=== PATIENT | female | born 1965 | race Caucasian/White ===

== ENCOUNTER 2019-02-24 16:38 | Emergency (ER) | payer SELFPAY ==
--- NOTE | 2019-02-24 17:12 | Cat Scan Report ---
CT head/brain wo con INDICATION / CLINICAL INFORMATION: 53 years Female; MAIN: CODE STROKE [id number]. TECHNIQUE: Routine CT head without contrast. All CT scans at this location are performed using CT dos e reduction for ALARA by means of automated exposure control. COMPARISON: None. FINDINGS: BRAIN / INTRACRANIAL CONTENTS: No acute hemorrhage, mass effect, midline shift, hydrocephalus, or acu te, large territorial infarct. No chronic infarct or atrophy appreciated. No significant white matter abnormality. CRANIOCERVICAL JUNCTION: No significant abnormality. ORBITS: No significant abnormality of visualized orbits. SINUSES / MASTOIDS: No significant abnormality the visualized paranasal sinuses or mastoid air cells. ADDITIONAL FINDINGS: None. IMPRESSION: 1. No focal mass, hemorrhage, hydrocephalus, or acute, large territorial infarct. This exam was performed as part of a code stroke protocol. The exam was completed on 02/24/2019 at 4: 02 PM. The exam was reviewed at 4:[address] Ramires was notified at 4:05 PM. Signer Name: Jose Suarez MD, III Signed: 02/24/2019 5:08 PM Workstation Name: [email or web address]
--- NOTE | 2019-02-24 17:19 | Emergency Department Report ---
ED Neuro Deficit HPI - General Chief Complaint: Headache Stated Complaint: HBP/HEADACHE Source: family Mode of arrival: Ambulatory Limitations: Language Barrier - History of Present Illness Initial Comments: [facility] Date of Service: 02/24/2019 16:55:55 Impression: L side numbness Comments: 56 yo with L side numbness, no weakness or speech changes. Poorly localizing blurred vision and JOLLY. NIHSS 1. Differential dx includes stroke/TIA but more likely migrainous process. No tPA due to time, no JOVANNY as not a pattern of LVO symptoms. Admission for further work-up is advised. Metrics: Last Known Well: 02/24/2019 01:00:00 [employer] Notification Time: 02/24/2019 16:55:08 Arrival Time: 02/24/2019 16:38:00 Stamp Time: 02/24/2019 16:55:55 Time First Login Attempt: 02/24/2019 17:01:10 Video Start Time: 02/24/2019 17:01:10 Symptoms: JOLLY, L side numbness NIHSS Start Assessment Time: 02/24/2019 17:04:00 Patient is not a candidate for tPA. Patient was not deemed candidate for tPA thrombolytics because of Last Well Known Above 4.5 Hours. Video End Time: 02/24/2019 17:10:00 CT head showed no acute hemorrhage or acute core infarct. CT head was reviewed. Radiologist was not called back for review of advanced imaging because n/a ER Physician notified of the decision on thrombolytics management on 02/24/2019 17:11:00 Our recommendations are outlined below. Recommendations: Activate Stroke Protocol Admission/Order Set Stroke/Telemetry Floor Neuro Checks Bedside Swallow Eval DVT Prophylaxis IV Fluids, Normal Saline Head of Bed Below 30 Degrees Euglycemia and Avoid Hyperthermia (PRN Acetaminophen) Initiate Aspirin 325 MG Daily Lipid Panel to Be Obtained, if Not Done in the Last Three Months Dysphaghia Screen: Swallow Evaluation, Bedside DVT prophylaxis: Choice of Primary Team Disposition: Sign Out Sign Out: Discussed with Emergency Department Provider History of Present Illness: Patient is a 53 year old Female. Patient was brought by private transportation with symptoms of JOLLY, L side numbness 56 yo reports symptoms since about 0100 today. These include JOLLY, L face/arm numbness, blurred vision, nausea. 1-2 other events like this in the past. Most severe at onset, but persistent symptoms prompted her coming to ER. CT head showed no acute hemorrhage or acute core infarct. CT head was reviewed. Examination: 1A: Level of Consciousness - Alert; keenly responsive + 0 1B: Ask Month and Age - Both Questions Right + 0 1C: Blink Eyes & Squeeze Hands - Performs Both Tasks + 0 2: Test Horizontal Extraocular Movements - Normal + 0 3: Test Visual Lee - No Visual Loss + 0 4: Test Facial Palsy (Use Grimace if Obtunded) - Normal symmetry + 0 5A: Test Left Arm Motor Drift - No Drift for 10 Seconds + 0 5B: Test Right Arm Motor Drift - No Drift for 10 Seconds + 0 6A: Test Left Leg Motor Drift - No Drift for 5 Seconds + 0 6B: Test Right Leg Motor Drift - No Drift for 5 Seconds + 0 7: Test Limb Ataxia (FNF/Heel-Martínez) - No Ataxia + 0 8: Test Sensation - Mild-Moderate Loss: Less Sharp/More Dull + 1 9: Test Language/Aphasia - Normal; No aphasia + 0 10: Test Dysarthria - Normal + 0 11: Test Extinction/Inattention - No abnormality + 0 NIHSS Score: 1 Patient was informed the Neurology Consult would happen via TeleHealth consult by way of interactive audio and video telecommunications and consented to receiv ing care in this manner. Due to the immediate potential for life-threatening deterioration due to underlying acute neurologic illness, I spent 35 minutes providing critical care. This time includes time for face to face visit via telemedicine, review of medical records, imaging studies and discussion of findings with providers, the patient and/or family. Dr Emmanuel Barrios [facility] - Related Data Allergies/Adverse Reactions: Allergies Allergy/AdvReac Type Severity Reaction Status Date / Time metoclopramide Allergy Unknown Verified 02/24/19 16:49 ED Review of Systems ROS: Stated complaint: HBP/HEADACHE Other details as noted in HPI ED Past Medical Hx - Past Medical History Previous Medical History?: Yes Hx Headaches / Migraines: Yes ED Neuro Physical Exam - General Limitations: Language Barrier Suspected Stroke: Yes - NIHSS Assessment Interval: Baseline 1a. Level of Consciousness: alert/keenly responsive 1b. LOC Questions: answers both correctly 1c. LOC Commands: performs tasks correctly 2. Best Gaze: normal 3. Visual: no visual loss 4. Facial Palsy: normal symmetrical movement 5b. Motor Arm Right: no drift 5a. Motor Arm Left: no drift 6a. Motor Leg Left: no drift 6b. Motor Leg Right: no drift 7. Limb Ataxia: absent 8. Sensory: mild/moderate sensory loss 9. Best Language: no aphasia 10. Dysarthria: normal 11. Extinction/Inattention: no abnormality Total Score: 1 Stroke Severity: Minor Stroke Critical care attestation.: If time is entered above; I have spent that time in minutes in the direct care of this critically ill patient, excluding procedure time. ED Disposition Clinical Impression: Numbness on left side Disposition: DC-09 OP ADMIT IP TO THIS HOSP Is pt being admited?: Yes Condition: Stable
[2019-02-24] MEDS ORDERED: LORazepam 2 MG/ML VIAL IV ONE (17:34)
--- NOTE | 2019-02-24 17:34 | Emergency Department Report ---
ED Neuro Deficit HPI - General Chief Complaint: Headache Stated Complaint: HBP/HEADACHE Time Seen by Provider: 02/24/19 17:21 Source: family Mode of arrival: Ambulatory Limitations: Language Barrier - History of Present Illness Initial Comments: Patient is a 53 years old female with history of headache and an anxiety. Patient is visiting her family. Patient is from [facility]. Patient presented to the ER complaining of headache, left upper and lower extremity numbness. Patient is also complaining of right flank pain, shortness of breath. Patient is currently treated for an anxiety and depression with lorazepam and Celexa. Patient stated that symptoms started approximately 1 AM today. Stroke telemetry neurologist initiated. CT brain is negative. Patient examined I Dr. Emmanuel Campoverde. He stated that patient is not a TPA candidate. Location: left arm, left leg History of same: Yes Quality: numb Context: sudden onset - Related Data Allergies/Adverse Reactions: Allergies Allergy/AdvReac Type Severity Reaction Status Date / Time metoclopramide Allergy Unknown Verified 02/24/19 16:49 ED Review of Systems ROS: Stated complaint: HBP/HEADACHE Other details as noted in HPI Comment: All other systems reviewed and negative Constitutional: denies: chills, fever Respiratory: shortness of breath. denies: cough, SOB with exertion Cardiovascular: denies: chest pain, palpitations, dyspnea on exertion Gastrointestinal: denies: abdominal pain, nausea, vomiting Genitourinary: denies: urgency, dysuria Musculoskeletal: denies: back pain Neurological: headache. denies: weakness ED Past Medical Hx - Past Medical History Previous Medical History?: Yes Hx Headaches / Migraines: Yes - Social History Smoking Status: Never Smoker Substance Use Type: Cocaine ED Neuro Physical Exam - General Limitations: Language Barrier General appearance: alert, in no apparent distress, anxious Suspected Stroke: Yes - Head Head exam: Present: atraumatic, normocephalic, normal inspection - Eye Eye exam: Present: normal appearance, PERRL - ENT ENT exam: Present: normal exam, normal orophraynx, mucous membranes moist - Neck Neck exam: Present: normal inspection, full ROM. Absent: tenderness, meningismus, lymphadenopathy - Respiratory Respiratory exam: Present: normal lung sounds bilaterally - Cardiovascular Cardiovascular Exam: Present: regular rate, normal rhythm, normal heart sounds - GI/Abdominal GI/Abdominal exam: Present: soft, normal bowel sounds. Absent: distended, tenderness, guarding, rebound, rigid, organomegaly, mass, bruit, pulsatile mass, hernia - Extremities Exam Extremities exam: Present: normal inspection, full ROM, normal capillary refill - Back Exam Back exam: Present: normal inspection, full ROM. Absent: CVA tenderness (R), CVA tenderness (L), muscle spasm, paraspinal tenderness, vertebral tenderness - Neurological Exam Neurological exam: Present: alert, oriented X3, CN II-XII intact, normal gait, reflexes normal - NIHSS Assessment Interval: Baseline 1a. Level of Consciousness: alert/keenly responsive 1b. LOC Questions: answers both correctly 1c. LOC Commands: performs tasks correctly 2. Best Gaze: normal 3. Visual: no visual loss 4. Facial Palsy: normal symmetrical movement 5b. Motor Arm Right: no drift 5a. Motor Arm Left: no drift 6a. Motor Leg Left: no drift 6b. Motor Leg Right: no drift 7. Limb Ataxia: absent 8. Sensory: normal 9. Best Language: no aphasia 10. Dysarthria: normal 11. Extinction/Inattention: no abnormality Total Score: 0 Stroke Severity: No Stroke Symptoms - Psychiatric Psychiatric exam: Present: normal mood - Skin Skin exam: Present: warm, intact, normal color ED Course Vital Signs 02/24/19 02/24/19 02/24/19 17:13 17:15 17:19 Temperature 97.0 F L Pulse Rate 83 80 89 Respiratory 25 H 25 H 18 Rate Blood Pressure 156/96 Blood Pressure 156/96 [Right] O2 Sat by Pulse 100 100 100 Oximetry 02/24/19 02/24/19 02/24/19 17:31 17:45 18:01 Temperature Pulse Rate 78 72 69 Respiratory 30 H 21 24 Rate Blood Pressure 136/85 131/80 127/75 Blood Pressure [Right] O2 Sat by Pulse 99 99 98 Oximetry 02/24/19 02/24/19 02/24/19 18:15 18:31 18:45 Temperature Pulse Rate 69 72 66 Respiratory 19 20 13 Rate Blood Pressure 129/75 120/75 116/70 Blood Pressure [Right] O2 Sat by Pulse 98 98 97 Oximetry 02/24/19 19:01 Temperature Pulse Rate 70 Respiratory 16 Rate Blood Pressure 114/72 Blood Pressure [Right] O2 Sat by Pulse 98 Oximetry - Lab Data Result diagrams: 02/24/19 17:23 02/24/19 17:23 Lab Results 02/24/19 02/24/19 02/24/19 Range/Units 17:01 17:23 17:23 WBC 9.1 (4.5-11.0) K/mm3 RBC 4.37 (3.65-5.03) M/mm3 Hgb 13.5 (10.1-14.3) gm/dl Hct 40.1 (30.3-42.9) % MCV 92 (79-97) fl MCH 31 (28-32) pg MCHC 34 (30-34) % RDW 13.9 (13.2-15.2) % Plt Count 391 (140-440) K/mm3 Lymph % (Auto) 27.6 (13.4-35.0) % [place] % (Auto) 6.0 (0.0-7.3) % Eos % (Auto) 0.3 (0.0-4.3) % Baso % (Auto) 0.4 (0.0-1.8) % Lymph # 2.5 (1.2-5.4) K/mm3 [place] # 0.5 (0.0-0.8) K/mm3 Eos # 0.0 (0.0-0.4) K/mm3 Baso # 0.0 (0.0-0.1) K/mm3 Seg Neutrophils % 65.7 (40.0-70.0) % Seg Neutrophils # 6.0 (1.8-7.7) K/mm3 PT 13.6 (12.2-14.9) Sec. INR 1.05 (0.87-1.13) APTT 26.2 (24.2-36.6) Sec. Thrombin Time (15.1-19.6) Sec. Sodium (137-145) mmol/L Potassium (3.6-5.0) mmol/L Chloride (98-107) mmol/L Carbon Dioxide (22-30) mmol/L Anion Gap mmol/L BUN (7-17) mg/dL Creatinine (0.7-1.2) mg/dL Estimated GFR ml/min BUN/Creatinine Ratio % Glucose (65-100) mg/dL POC Glucose 95 (70-105) Calcium (8.4-10.2) mg/dL Troponin T (0.00-0.029) ng/mL 02/24/19 02/24/19 Range/Units 17:23 17:23 WBC (4.5-11.0) K/mm3 RBC (3.65-5.03) M/mm3 Hgb (10.1-14.3) gm/dl Hct (30.3-42.9) % MCV (79-97) fl MCH (28-32) pg MCHC (30-34) % RDW (13.2-15.2) % Plt Count (140-440) K/mm3 Lymph % (Auto) (13.4-35.0) % [place] % (Auto) (0.0-7.3) % Eos % (Auto) (0.0-4.3) % Baso % (Auto) (0.0-1.8) % Lymph # (1.2-5.4) K/mm3 [place] # (0.0-0.8) K/mm3 Eos # (0.0-0.4) K/mm3 Baso # (0.0-0.1) K/mm3 Seg Neutrophils % (40.0-70.0) % Seg Neutrophils # (1.8-7.7) K/mm3 PT (12.2-14.9) Sec. INR (0.87-1.13) APTT (24.2-36.6) Sec. Thrombin Time 16.1 (15.1-19.6) Sec. Sodium 133 L (137-145) mmol/L Potassium 3.4 L (3.6-5.0) mmol/L Chloride 96.9 L (98-107) mmol/L Carbon Dioxide 20 L (22-30) mmol/L Anion Gap 20 mmol/L BUN 5 L (7-17) mg/dL Creatinine 0.5 L (0.7-1.2) mg/dL Estimated GFR > 60 ml/min BUN/Creatinine Ratio 10 % Glucose 107 H (65-100) mg/dL POC Glucose (70-105) Calcium 9.2 (8.4-10.2) mg/dL Troponin T < 0.010 (0.00-0.029) ng/mL - EKG Data -: EKG Interpreted by [facility] EKG shows normal: sinus rhythm Rate: normal Interpretation: no acute changes - Radiology Data Radiology results: report reviewed - Medical Decision Making Patient is a 53 years old female with history of headache and an anxiety. Patient is visiting her family. Patient is from [facility]. Patient presented to the ER complaining of headache, left upper and lower extremity numbness. Patient is also complaining of right flank pain, shortness of breath. Patient is currently treated for an anxiety and depression with lorazepam and Celexa. Patient stated that symptoms started approximately 1 AM today. Stroke telemetry neurologist initiated. CT brain is negative. Patient examined I Dr. Emmanuel Barrios. He stated that patient is not a TPA candidate. Patient remained stable in the ER. Patient's symptoms completely resolved after lorazepam. No clinical evidence of stroke. Patient and family kept asking for lorazepam. They said she ran out of lorazepam and asking if he can give prescription for lorazepam. Patient is stroke scale is 0. Patient given prescription for lorazepam for 3 days and given [facility] senna to follow-up. Patient and family advised to return to the ER if she develop any new symptoms. Critical care attestation.: If time is entered above; I have spent that time in minutes in the direct care of this critically ill patient, excluding procedure time. ED Disposition Clinical Impression: Numbness on left side, Anxiety disorder Disposition: DC-01 TO HOME OR SELFCARE Is pt being admited?: No Condition: Stable Instructions: Generalized Anxiety Disorder (ED), Paresthesia (ED) Referrals: [facility] [Provider Group] - 3-5 Days
[2019-02-24 17:38] LABS: Basophils % (Auto) 0.4 % (0.0-1.8); Eosinophils % (Auto) 0.3 % (0.0-4.3); Hematocrit 40.1 % (30.3-42.9); Hemoglobin 13.5 gm/dl (10.1-14.3); Lymphocytes # (Auto) 2.5 K/mm3 (1.2-5.4); Lymphocytes % (Auto) 27.6 % (13.4-35.0); Mean Corpuscular HGB Conc 34 % (30-34); Mean Corpuscular Volume 92 fl (79-97); Monocytes # (Auto) 0.5 K/mm3 (0.0-0.8); Platelet Count 391 K/mm3 (140-440); Red Blood Count 4.37 M/mm3 (3.65-5.03); Red Cell Distribution Width 13.9 % (13.2-15.2)
[2019-02-24 17:58] LABS: BUN/Creatinine Ratio 10; Blood Urea Nitrogen 5 mg/dL (7-17); Calcium 9.2 mg/dL (8.4-10.2); Hemolysis Index 16
[2019-02-24 18:07] LABS: INR 1.05 (0.87-1.13); Partial Thromboplastin Time 26.2 Sec. (24.2-36.6)
[2019-02-24 22:25] VITALS: BP 156/96
== END 2019-02-24 22:25 | disposition home or self-care (01) ==
LOC: ED 16:38
DX: R20.0 Anesthesia of skin (principal); F41.9 Anxiety disorder, unspecified; R10.9 Unspecified abdominal pain; R06.02 Shortness of breath; G43.909 Migraine, unspecified, not intractable, without status migrainosus; F14.10 Cocaine abuse, uncomplicated; Z88.8 Allergy status to other drugs, medicaments and biological substances
CPT/HCPCS: 36415; 70450; 80048; 82962; 84484; 85025; 85610; 85670; 85730; 93005; 93010; 96374; 99284; J2060